=== PATIENT | female | born 1950 ===

== ENCOUNTER 2021-05-17 12:41 | Outpatient (CLI) | payer MEDICARE, BC ==
[2021-05-17 13:46] LABS: Bilirubin Neg (Negative); Blood, Urine Negative (Negative); Clarity Slightly Cloudy (Clear); Glucose, Urine (Dipstick) Normal (Negative); Ketone, Urine Negative (Negative); Leukocyte Negative (Negative); Nitrite Negative (Negative); Protein, Urine (Dipstick) Negative (Neg-Trace); Specific Gravity, Urine 1.005 (1.002-1.036); Urobilinogen Normal mg/dL (Less than 2)
[2021-05-17 13:59] LABS: Prothrombin Time 10.6 sec (9.5-12.1)
[2021-05-18 21:06] LABS: SARS-CoV-2 PCR by NAA Not Detected (NotDetected)
== END 2021-05-17 12:42 | disposition home or self-care (01) ==
LOC: LABBT 12:41
PROVIDERS: ATTEND Orthopaedic Surgery
DX: Z01.812 Encounter for preprocedural laboratory examination (principal); M17.11 Unilateral primary osteoarthritis, right knee; Z20.822 Contact with and (suspected) exposure to COVID-19
CPT/HCPCS: 81003; 85610; 87081; U0003; U0005

== ENCOUNTER 2021-05-22 06:42 | Inpatient (IN) | payer MEDICARE, BC ==
[2021-05-22] MEDS ORDERED: Midazolam HCl 2 mg/2 ml Vial ONE (08:06)
[2021-05-22] MEDS ORDERED: Fentanyl 100 MCG/2 ML VIAL ONE ×4 (08:06→10:47)
[2021-05-22] MEDS ORDERED: Tranexamic Acid 1,000 MG/10 ML VIAL ONE (08:13)
[2021-05-22] MEDS ORDERED: ceFAZolin Sodium (SDC) 2 GM/100 ML BAG ONE (08:13)
[2021-05-22] MEDS ORDERED: Sodium Chloride 0.9% 100 ML ONE (08:13)
[2021-05-22] MEDS ORDERED: Vancomycin 1 GM/200 ML BAG ONE (08:13)
[2021-05-22] MEDS ORDERED: Fentanyl 100 MCG/2 ML VIAL IV PRN (08:39)
[2021-05-22] MEDS ORDERED: Promethazine HCl 25 MG/ML VIAL IM PRN ×2 (08:45→10:29)
[2021-05-22] MEDS ORDERED: Ropivacaine 0.2% 550 ML 550 ML NERVE BLCK SCH (08:45)
[2021-05-22] MEDS ORDERED: Ondansetron PF 4 MG/2 ML Vial IVP PRN ×2 (08:45→10:29)
[2021-05-22] MEDS ORDERED: HYDROcodone/Acetaminophen 10/325 mg Tablet PO PRN (08:45)
[2021-05-22] MEDS ORDERED: Zolpidem Tartrate 5 MG TAB PO PRN ×2 (08:45→10:29)
[2021-05-22] MEDS ORDERED: traMADol HCl 50 MG TAB PO PRN ×2 (08:45)
[2021-05-22] MEDS ORDERED: Bupivacaine HCl 0.5%/Epinephrine 1:200,000/PF 30 ml Vial ONE (09:02)
[2021-05-22] MEDS ORDERED: Ondansetron PF 4 MG/2 ML Vial ONE (09:02)
[2021-05-22] MEDS ORDERED: PHENYLEPHRINE-NS 100 MCG/ML 10 ML SYRINGE ONE (09:02)
[2021-05-22] MEDS ORDERED: Dexamethasone 20 MG/5 ML VIAL ONE (09:02)
[2021-05-22] MEDS ORDERED: PROPOFOL 200 MG/20 ML VIAL ONE (09:02)
[2021-05-22] MEDS ORDERED: Bupivacaine PF 0.5% 30 ML VIAL ONE (09:27)
[2021-05-22] MEDS ORDERED: diphenhydrAMINE 25 MG CAP PO PRN (10:29)
[2021-05-22] MEDS ORDERED: Acetaminophen 325 MG TAB PO PRN (10:29)
[2021-05-22] MEDS ORDERED: Fioricet 325/50/40 mg Tablet PO SCH (10:30)
[2021-05-22] MEDS: Sodium Chloride 0.9% 1,000 ML IV SCH ×3 (12:52→20:56)
[2021-05-22] MEDS: Ketorolac Tromethamine 30 MG/ML VIAL IVP SCH ×2 (13:23→18:28)
[2021-05-22 16:04] VITALS: BMI 251441.2
[2021-05-22] MEDS: CEFAZOLIN 2 GM, Admixture Fee 1 EACH in Sodium Chloride 0.9% 100 ML IVPB SCH (16:47)
[2021-05-22] MEDS: Bupropion 100 MG SR TAB PO SCH (20:54)
[2021-05-22] MEDS: Atorvastatin Calcium 10 MG TAB PO SCH (20:54)
[2021-05-22] MEDS: Aspirin 81 mg Enteric Coated Tablet PO SCH (20:54)
[2021-05-23] MEDS: Ketorolac Tromethamine 30 MG/ML VIAL IVP SCH ×4 (00:10→17:37)
[2021-05-23] MEDS: CEFAZOLIN 2 GM, Admixture Fee 1 EACH in Sodium Chloride 0.9% 100 ML IVPB SCH (00:11)
[2021-05-23] MEDS: HYDROcodone/Acetaminophen 10/325 mg Tablet PO PRN ×3 (01:49→21:06)
[2021-05-23] MEDS: Liothyronine Sodium 5 MCG TAB PO SCH (05:45)
[2021-05-23] MEDS: Levothyroxine Sodium 112 MCG TAB PO SCH (05:45)
[2021-05-23] MEDS: Sodium Chloride 0.9% 1,000 ML IV SCH ×2 (05:53→16:24)
[2021-05-23 06:17] LABS: Hemoglobin 11.7 g/dL (12.0-16.0); Mean Corpuscular HGB CONC 34.7 g/dL (32.0-36.0); Mean Corpuscular Hemoglobin 31.5 pg (27.0-31.0); Mean Corpuscular Volume 90.7 fL (78.0-98.0); Platelet Count 149 thou/uL (130-400); RBC Distribution Width 12.2 % (11.5-14.5); Red Blood Cell (RBC) Count 3.72 mill/uL (4.20-5.40); White Blood Cell (WBC) Count 6.5 thou/uL (4.8-10.8)
[2021-05-23] MEDS: Senokot S 8.6-50 MG TAB PO SCH ×2 (08:27→21:07)
[2021-05-23] MEDS: Multivitamin W/ Minerals 1 TAB PO SCH (08:28)
[2021-05-23] MEDS: Aspirin 81 mg Enteric Coated Tablet PO SCH ×2 (08:28→21:08)
[2021-05-23] MEDS: Bupropion 100 MG SR TAB PO SCH ×2 (08:29→21:08)
[2021-05-23] MEDS: metFORMIN XR 500 MG TAB PO SCH (08:29)
[2021-05-23] MEDS: Lisinopril/Hydrochlorothiazide 10 mg/12.5 mg Tablet PO SCH (08:30)
[2021-05-23] MEDS: Ferrous Gluconate 324 MG TAB PO SCH ×2 (09:51→21:07)
[2021-05-23] MEDS: Atorvastatin Calcium 10 MG TAB PO SCH (21:06)
[2021-05-24] MEDS: Ketorolac Tromethamine 30 MG/ML VIAL IVP SCH ×2 (00:21→06:14)
[2021-05-24] MEDS: Sodium Chloride 0.9% 1,000 ML IV SCH ×2 (02:28→11:52)
[2021-05-24] MEDS: HYDROcodone/Acetaminophen 10/325 mg Tablet PO PRN ×3 (03:21→16:09)
[2021-05-24] MEDS: Levothyroxine Sodium 112 MCG TAB PO SCH (06:14)
[2021-05-24] MEDS: Liothyronine Sodium 5 MCG TAB PO SCH (06:14)
[2021-05-24] MEDS: Ferrous Gluconate 324 MG TAB PO SCH (08:45)
[2021-05-24] MEDS: Aspirin 81 mg Enteric Coated Tablet PO SCH (08:45)
[2021-05-24] MEDS: metFORMIN XR 500 MG TAB PO SCH (08:46)
[2021-05-24] MEDS: Senokot S 8.6-50 MG TAB PO SCH (08:46)
[2021-05-24] MEDS: Multivitamin W/ Minerals 1 TAB PO SCH (08:46)
[2021-05-24] MEDS: Lisinopril/Hydrochlorothiazide 10 mg/12.5 mg Tablet PO SCH (08:46)
[2021-05-24] MEDS: Bupropion 100 MG SR TAB PO SCH (08:47)
[2021-05-24 16:48] VITALS: BP 144/70; TEMP 98.4
[2021-05-30] MEDS ORDERED: Estrogens, Conjugated 30 GM TUBE VAG SCH (21:00)
== END 2021-05-24 16:40 | disposition home or self-care (01) | DRG 470 ==
LOC: SDC 06:42 → SJJU 10:29 → SDC 18:29 → SJJU 18:29 → OBSVTOIN 05-24 10:15
PROVIDERS: ADMIT Orthopaedic Surgery; ATTEND Orthopaedic Surgery
PROC: 0SRC0J9 Replacement of Right Knee Joint with Synthetic Substitute, Cemented, Open Approach (ICD-10-PCS; principal; 2021-05-22)
PROC: 8E0YXBZ Computer Assisted Procedure of Lower Extremity (ICD-10-PCS; 2021-05-22)
DX: M17.11 Unilateral primary osteoarthritis, right knee (principal); Z20.822 Contact with and (suspected) exposure to COVID-19; I10 Essential (primary) hypertension; E78.5 Hyperlipidemia, unspecified; G43.909 Migraine, unspecified, not intractable, without status migrainosus; E03.9 Hypothyroidism, unspecified; L40.50 Arthropathic psoriasis, unspecified; J30.2 Other seasonal allergic rhinitis; E11.9 Type 2 diabetes mellitus without complications; F32.A Depression, unspecified; Z79.84 Long term (current) use of oral hypoglycemic drugs; Z79.899 Other long term (current) drug therapy; Z88.2 Allergy status to sulfonamides; Z79.890 Hormone replacement therapy
CPT/HCPCS: 36415; 85027; A4306; C1713; C1776; J0690; J1100; J1885; J2250; J2405; J2704; J2795; J3010; J3370; J3490; J7050; S0020